=== PATIENT | male | born 1965 | race Caucasian/White ===

== ENCOUNTER 2017-03-08 19:22 | Inpatient (IN) | payer OTHER ==
--- NOTE | ~2017-03-08 | DS ---
Unit #: [id number] #: [id number] Patient: RAMON PAZ [id number] [facility] [address] [place] [address] [id number] MR#: [id number] NAME: RAMON PAZ ROOM: 74 Age: 52 Sex: M Admission Date: 03/08/2017 : 1965 Discharge Date: 03/13/2017 Attending Physician: Marbin Cruz M.D. Primary Care Physician: Primary Care Physician No DISCHARGE SUMMARY REASON FOR ADMISSION Ramon is a 52-year-old man, known to me from previous admissions, who came in reporting a relapse and need for increased alcohol detox services. He had no suicidal ideation, intent, or plan and was admitted for detox. DIAGNOSTIC STUDIES LABORATORY RESULTS: Please see hospital chart. HOSPITAL COURSE The patient was admitted and placed on the alcohol detox protocol. His citalopram was continued unchanged. He had an uneventful period of detox, with the addition of some mild gastrointestinal upset. The day prior to discharge which could have been due to a virus that has been circulating within the hospital. He was pleasant, cooperative and showed no suicidal ideation, intent, or thinking on the date of discharge. DISCHARGE DIAGNOSES AXIS I: Alcohol dependence withdrawal, uncomplicated; major depressive disorder. AXIS II: No diagnosis. AXIS III: Alcohol withdrawal, resolved. AXIS IV: AXIS V: DISCHARGE INSTRUCTIONS Follow up with the [facility]. DISCHARGE MEDICATIONS No prescriptions were provided. The patient was to continue on Celexa 40 mg daily for depression from his psychiatrist. CONDITION AT DISCHARGE Improved. PROGNOSIS Good. DIET AND ACTIVITY Ad dennis. Dictated by... Unit #: [id number] #: [id number] Patient: RAMON PAZ Marbin Cruz M.D. [facility]/karl TD: 03/13/2017 11:22 JOB #: [id number] DISCHARGE SUMMARY Page 1 of 1 X Marbin Cruz MD X DISCHARGE SUMMARY
--- NOTE | ~2017-03-08 | PA ---
Unit #: [id number] #: [id number] Patient: RAMON PAZ [id number] [place] [address] [id number] I MR#: [id number] NAME: RAMON PAZ ROOM: P174 Age: 52 Sex: M Admission Date: 03/08/2017 : 1965 Date of Assessment: Attending Physician: Marbin Cruz M.D. Admitting Physician: Marbin Cruz M.D. Primary Care Physician: Primary Care Physician No PSYCHIATRIC ASSESSMENT INFORMANTS The patient reliable; OLOP, reliable. CHIEF COMPLAINT Alcohol detox. HISTORY OF PRESENT ILLNESS Ramon is a 52-year-old and has a significant history of alcohol use disorder with several episodes of treatment at this facility. He does suffer from depression, but denies suicidal ideation. He was readmitted for alcohol detox. PAST PSYCHIATRIC HISTORY As noted, Guillermina had multiple admissions to this facility, the last in 08/2016. He is taking citalopram for depression. FAMILY PSYCHIATRIC HISTORY There is a significant family history of alcoholism and his sister suffers from bulimia and anxiety disorder. SOCIAL HISTORY The patient denied any history of childhood abuse or neglect. He is a single man living with his family and is working with a supportive girlfriend. PAST MEDICAL HISTORY No chronic medical problems. MEDICATIONS None currently. ALLERGIES No known medication allergies. SUBSTANCE USE HISTORY As noted above. MENTAL STATUS EXAMINATION The patient presented as a mildly disheveled man, appearing his stated age. He was cooperative with the examination. Speech was spontaneous, but soft. Musculoskeletal examination was calm. His mood was anxious with a decreased range of affect. He was alert and fully oriented with no disorientation. Memory and concentration were fair. Thought processes Unit #: [id number] #: [id number] Patient: RAMON PAZ were logical with no psychosis and no suicidal or homicidal ideation. Insight and judgment were intact. Fund of knowledge and abstraction were fair. ASSETS AND LIABILITIES The patient is familiar with local resources, has supportive family, and has experience with treatment. Liabilities include recent relapse and some family stress. ADMITTING DIAGNOSES [place] I: Alcohol dependence with withdrawal, uncomplicated, F10.230; major depressive disorder. [place] II: No diagnosis. [place] III: Alcohol withdrawal syndrome. PSYCHIATRIC PLAN The patient was admitted and placed on alcohol detox protocol. Celexa will be continued without change. He will enroll in psychotherapy groups and activities with dual diagnosis focus. TREATMENT GOALS Resolution of intoxication, improvement in insight, and improvement in coping skills. DISCHARGE PLANNING Follow up with his counselor at [facility]. ESTIMATED LENGTH OF STAY 5 days. Dictated by... Marbin Cruz M.D. SHIRLENE/karl TD: 03/13/2017 11:46 JOB #: [id number] PSYCHIATRIC ASSESSMENT Page 1 of 1 X Marbin Cruz MD X PSYCHIATRIC ASSESSMENT
--- NOTE | ~2017-03-08 | PN ---
Unit #: [id number] #: [id number] Patient: RAMON PAZ [id number] [facility] [address] [place] [address] [id number] I MR#: [id number] NAME: RAMON PAZ ROOM: 74 Age: 52 Sex: M Admission Date: 03/08/2017 : 1965 Attending Physician: Marbin Cruz M.D. Admitting Physician: Marbin Cruz M.D. Primary Care Physician: Primary Care Physician No [facility] PROGRESS NOTES DATE OF SERVICE: 03/12/2017 SUBJECTIVE This patient was seen and evaluated on 03/12/2017. He continues alcohol detox protocol. He is vomiting today. He reports adequate fluid intake. He reports feeling rather bad today. He denies any tremors. He will continue medications p.r.n. and he is encouraged to continue good fluid intake. He will meet with his primary psychiatrist tomorrow, Dr. Cruz. Dictated by... Eli Diaz A.P.R.N. NISREEN/modl TD: 03/13/2017 12:10 JOB #: [id number] [facility] PROGRESS NOTES Page 1 of 1 X Eli Diaz PROGRESS NOTE
--- NOTE | ~2017-03-08 | PN ---
Unit #: [id number] #: [id number] Patient: RAMON PAZ [id number] [facility] [address] [place] [address] [id number] I MR#: [id number] NAME: RAMON PAZ ROOM: P174 Age: 52 Sex: M Admission Date: 03/08/2017 : 1965 Attending Physician: Marbin Cruz M.D. Admitting Physician: Marbin Cruz M.D. Primary Care Physician: Primary Care Physician No [facility] PROGRESS NOTES DATE 03/10/2017 DISCUSSION The patient offers no new complaints today. He is resting comfortably and his detox continues uneventfully. Dr. Cruz will reassume care of the patient on 03/11/2017. Dictated by... Sha Ambriz M.D. ALEJANDRO/barbara TD: 03/10/2017 18:33 JOB #: [id number] [facility] PROGRESS NOTES Page 1 of 1 X Sha Ambriz MD X PROGRESS NOTE
--- NOTE | ~2017-03-08 | PN ---
Unit #: [id number] #: [id number] Patient: RAMON PAZ [id number] [facility] [address] [place] [address] [id number] MR#: [id number] NAME: RAMON PZA ROOM: P174 Age: 52 Sex: M Admission Date: 03/08/2017 : 1965 Attending Physician: Marbin Cruz M.D. Admitting Physician: Marbin Cruz M.D. Primary Care Physician: No [facility] This is Eli Diaz with coverage for Dr. Cruz. DATE 03/11/2017 DISCUSSION This patient was seen and evaluated on 03/11/2017. He reports feeling much better. He is continuing alcohol detox. He is eating and drinking without problems. His appetite has improved. His sleep is better. He denies any SI or HI and contracts for safety. Anticipate stepdown to the [facility] program upon discharge from [facility]. Dictated by... Juan Vasquez/ts TD: 03/13/2017 10:13 JOB #: [id number] [facility] PROGRESS NOTES Page 1 of 1 X Eli Diaz PROGRESS NOTE
--- NOTE | ~2017-03-08 | HP ---
Unit #: [id number] #: [id number] Patient: RAMON PAZ [id number] [place] [address] [id number] MR#: [id number] NAME: RAMON PAZ ROOM: P174 Age: 52 Sex: M Admission Date: 03/08/2017 : 1965 Attending Physician: Marbin Cruz M.D. Admitting Physician: Marbin Cruz M.D. Primary Care Physician: Primary Care Physician No HISTORY AND PHYSICAL HISTORY OF PRESENT ILLNESS Ramon is a 52 year old admitted to [facility] because of his continued abuse of alcohol. PAST MEDICAL HISTORY 1. Long history of alcohol abuse. 2. History of withdrawal seizures. 3. Obesity. PAST SURGICAL HISTORY Urethra surgery. ALLERGIES No known drug allergies. SOCIAL HISTORY He smokes 1 pack per day. Describes himself as a frequent binge drinker but can drink up to a half gallon of vodka on a daily basis. He denies illicit drug use. FAMILY HISTORY Medically noncontributory. REVIEW OF SYSTEMS CONSTITUTIONAL: No fever or chills. HEENT: Denies any sore throat, ear pain or runny nose. CARDIOVASCULAR: Denies chest pain, irregular heart rhythm or palpitations. CHEST: Denies shortness of breath or cough. No hemoptysis. GASTROINTESTINAL: Denies nausea, vomiting, diarrhea or chronic constipation. ENDOCRINE: Denies history of increased thirst or urination. No recent significant weight loss or gain. GENITOURINARY: Denies dysuria, frequency, or hematuria. SKIN: Denies any rashes. HEMATOLOGIC: Denies history of increased bleeding or bruising. MUSCULOSKELETAL: Denies any hot, swollen joints. No generalized muscle pain. NEUROLOGIC: Denies problems with vision or speech. No frequent, severe headaches. No numbness, tingling or weakness in any extremities. Denies loss of bladder or bowel control. CURRENT MEDICATIONS 1. Detox protocol. Unit #: [id number] #: [id number] Patient: RAMON PAZ 2. Celexa 40 mg daily. PHYSICAL EXAMINATION GENERAL: Alert, well-nourished, in no apparent distress. VITAL SIGNS: Blood pressure 120/72, heart rate 80, respirations 16, temperature 98.6. WEIGHT: 220. HEIGHT: 5 feet 7 inches. SKIN: Warm and dry without rash or lesion. HEENT: Normocephalic. TMs not viewed. Oral and nasal passages clear. Conjunctivae clear. PERRLA. EOMs intact. NECK: Supple without lymphadenopathy or thyromegaly. HEART: Regular rate and rhythm without murmur. LUNGS: Clear. ABDOMEN: Soft, nontender. : Not done. EXTREMITIES: No evidence of cyanosis, clubbing or edema. Moves all without focal deficit. NEUROLOGICAL: Grossly within normal limits. Cranial Nerves: II: Visual burch are intact. III, IV AND : Extraocular movements are intact. Pupils are equal, round and reactive to light. V: Facial sensation is grossly normal. VII: Facial movements and expression are normal. VIII: Auditory acuity grossly intact. IX, X: Uvula is midline. Phonation is normal. XI: Patient shrugs shoulders and turns head normally. XII: Tongue protrudes in the midline. Sensory and Motor Function: Sensory and motor sensation is grossly normal. Motor: moves all extremities well. Coordination: Gait is normal. Deep Tendon Reflexes: Intact. IMPRESSION Psychiatric admission. RECOMMENDATIONS PSYCHIATRIC: Per psychiatrist. MEDICAL: See no contraindications to participate in facility's activities. MEDICAL PROGNOSIS Good. MEDICAL CONDITION Stable. Dictated by... Anali Pierre P.A.-C. for Jen Maurice/barbara TD: 03/09/2017 20:49 JOB #: [id number] Unit #: [id number] #: [id number] Patient: RAMON PAZ HISTORY AND PHYSICAL Page 1 of 1 X Anali Pierre HISTORY AND PHYSICAL
[~2017-03-08 19:22] MED LIST: ACETAMINOPHEN PO; CELEXA PO
[2017-03-09 09:37] LABS: BASOPHIL# 0.1 X10e3 (0-0.3); BASOPHIL% 0.7 % (0-2.5); EOSINOPHIL# 0.1 X10e3 (0-0.7); HEMATOCRIT 37.7 % (38.0-50.0); HEMOGLOBIN 12.6 gm/dL (13.0-16.0); LYMPHOCYTE# 2.6 X10e3 (1.0-3.5); LYMPHOCYTE% 30.4 % (17.0-45.0); MEAN CELL VOLUME 99.3 FL (83-96); MEAN CORPUSCULAR HEMOGLOBIN 33.2 PG (28-34); MEAN CORPUSCULAR HGB CONC 33.4 g/dL (30-36); MEAN PLATELET VOLUME 9.3 FL (6.5-11.5); MONOCYTE# 0.5 X10e3 (0-1.0); MONOCYTE% 5.2 % (3.0-12.0); NEUTROPHIL# 5.4 X10e3 (1.5-7.1); NEUTROPHIL% 62.7 % (40-75); PLATELET COUNT 126 X10e3 (140-420); RED CELL DISTRIBUTION WIDTH 16.2 % (11.0-15.5); WHITE BLOOD COUNT 8.6 X10e3 (4.0-10.5)
[2017-03-09 10:05] LABS: DIFF IND NO
[2017-03-09 10:06] LABS: ALBUMIN SERUM 4.3 g/dL (3.5-5.0); BILIRUBIN,TOTAL 1.7 mg/dL (0.2-2.0); BUN/CREATININE RATIO 24.28; CREATININE SERUM 0.7 mg/dL (0.6-1.4); POTASSIUM 3.3 mmol/L (3.5-5.1); PROTEIN TOTAL SERUM 7.2 g/dL (6.0-8.3)
== END 2017-03-13 11:10 | disposition hospice, home (50) | DRG 897 ==
LOC: P1E 21:13
PROVIDERS: Psychiatry & Neurology Psychiatry
PROC: HZ2ZZZZ Detoxification Services for Substance Abuse Treatment (ICD-10-PCS; principal; 2017-03-08)
DX: F10.230 Alcohol dependence with withdrawal, uncomplicated (principal); F32.9 Major depressive disorder, single episode, unspecified; E66.9 Obesity, unspecified; F17.210 Nicotine dependence, cigarettes, uncomplicated
CPT/HCPCS: 80053; 85025; 86592; J2550